=== PATIENT | female | born 1960 | race Caucasian/White ===

== ENCOUNTER 2017-09-29 12:52 | Inpatient (IN) | payer OTHER, MEDICAID ==
[~2017-09-29] VITALS: Ht 162.6 cm; Wt 56.7 kg
[2017-09-29] MEDS ORDERED: IV NORMAL SALINE 1000 ML BAG IV ONE (13:00)
--- NOTE | 2017-09-29 13:03 | NUR ---
Sending facility info per transport EMT: [id number] [place]. [id number] Contact: Ave
--- NOTE | 2017-09-29 13:05 | NUR ---
PATEINT IS AWAKE, ALERT, ORIENTED X4. ALREADY HAS A CATHETER IN PLACE.
[2017-09-29] MEDS ORDERED: DILT-32 PO (13:16)
[2017-09-29] MEDS ORDERED: BACL20TA PO (13:16)
[2017-09-29] MEDS ORDERED: TERI14TA PO (13:16)
[2017-09-29] MEDS ORDERED: ALPR0.255 PO ×2 (13:16→13:17)
[2017-09-29] MEDS ORDERED: PARO20TA7 PO (13:16)
[2017-09-29] MEDS ORDERED: CLINDAMYCIN (13:16)
[2017-09-29] MEDS ORDERED: PANT40TA4 PO (13:16)
[2017-09-29] MEDS ORDERED: CARV40CP PO (13:16)
[2017-09-29] MEDS ORDERED: TERA5CAP4 PO (13:16)
[2017-09-29] MEDS ORDERED: GABA-534 PO (13:16)
[2017-09-29] MEDS ORDERED: MIRA50TA PO (13:16)
[2017-09-29] MEDS ORDERED: PROM25TA15 PO (13:16)
[2017-09-29] MEDS ORDERED: FLUC150T PO (13:17)
[2017-09-29] MEDS ORDERED: TRAM50TA2 PO (13:17)
[2017-09-29] MEDS ORDERED: LEVO750T46 PO (13:17)
[2017-09-29 13:46] LABS: BASOPHILS % (AUTO) 0.8 % (0.0-2.0); CREATININE 0.6 mg/dL (0.6-1.3); EOSINOPHILS # (AUTO) 0.2 K/uL (0.0-0.7); EOSINOPHILS % (AUTO) 3.7 % (0.0-7.0); HEMATOCRIT 42.4 % (31.2-41.9); HEMOGLOBIN 14.1 g/dL (10.9-14.3); LYMPHOCYTES # (AUTO) 1.5 K/uL (20.0-40.0); LYMPHOCYTES % (AUTO) 31.9 % (20.5-51.5); MEAN CORPUSCULAR HEMOGLOBIN 31.8 uug (24.7-32.8); MEAN CORPUSCULAR HGB CONC 33 g/dL (32.3-35.6); MEAN CORPUSCULAR VOLUME 95.8 fL (75.5-95.3); MONOCYTES # (AUTO) 0.4 K/uL (2.0-10.0); NEUTROPHILS # (AUTO) 2.6 K/uL (1.8-8.9); NEUTROPHILS % (AUTO) 55.6 % (38.5-71.5); PLATELET COUNT (AUTO) 191 K/uL (179-408); POTASSIUM 3.7 mmol/L (3.5-5.1); RED BLOOD CELL COUNT(AUTO) 4.43 MIL/uL (3.63-4.92); WHITE BLOOD COUNT (AUTO) 4.7 K/uL (3.8-11.8)
[2017-09-29 14:02] LABS: BILIRUBIN,DIRECT 0.1 mg/dL (0.0-0.2); BILIRUBIN,TOTAL 0.2 mg/dL (0.2-1.0); TOTAL PROTEIN, SERUM 7.5 g/dL (6.4-8.2)
--- NOTE | 2017-09-29 14:20 | NUR ---
AWAITING TEST RESULTS. PT IS AWAKE AND ALERT.
[2017-09-29] MEDS ORDERED: PROBIOTICS (15:18)
--- NOTE | 2017-09-29 15:24 | NUR ---
PATIENT AWARE OF PENDING ADMISSION. REPORT GIVEN TO CARO CLANCY.
[2017-09-29 15:36] LABS: *BILIRUBIN,URIN NEGATIVE (NEGATIVE); *BLOOD, URINE Trace-intact (NEGATIVE); *COLOR,URINE LIGHT YELLOW (YELLOW); *KETONES,URINE NEGATIVE (NEGATIVE); *PROTEIN,URINE NEGATIVE (NEGATIVE); *UROBILINOGEN,URINE 0.2 E.U./dl (NORMAL); LEUKOCYTE ESTERASE ,URINE 1+ (NEGATIVE); NITRITE, URINE NEGATIVE (NEGATIVE); UGLUCOSE NEGATIVE (NEGATIVE)
[2017-09-29 15:40] LABS: *CLARITY,URINE HAZY (CLEAR)
[2017-09-29 15:48] LABS: CALCIUM OXALATE CRYSTALS,UR FEW /HPF (NONE SEEN); YEAST,URINE MODERATE /HPF (NONE SEEN)
--- NOTE | 2017-09-29 16:15 | NUR ---
Nursing notes: Received pt from ed, upon admission awake, alert, oriented x3 verbally responsive, suprapubic cath in place draining clear yellow urine, denies any pain at this time, pt will be seen by MD for admission orders.
[2017-09-29 17:34] VITALS: BP 105/73
--- NOTE | 2017-09-29 18:30 | NUR ---
Dr Cortez has not seen pt yet, pt and family asking for food was explained to them that we do not have orders, we text to [facility]D but has not reply yet.
[2017-09-29 19:00] VITALS: BP 108/68
[2017-09-29] MEDS ORDERED: PROMETHAZINE HCL 25 MG TABLET PO PRN (19:15)
[2017-09-29] MEDS ORDERED: TRAMADOL HCL 50 MG TABLET PO PRN (19:15)
[2017-09-29] MEDS ORDERED: MORPHINE SULFATE 2 MG/1 ML DISP.SYRIN IV PRN (19:15)
[2017-09-29] MEDS ORDERED: ALPRAZOLAM 0.25 MG TABLET PO PRN (19:15)
[2017-09-29] MEDS ORDERED: ZOLPIDEM 5 MG TABLET PO PRN (19:15)
[2017-09-29] MEDS ORDERED: ONDANSETRON 4 MG/2 ML VIAL IV PRN (19:15)
[2017-09-29] MEDS ORDERED: MORPHINE SULFATE 4 MG/1 ML DISP.SYRIN IV PRN (19:30)
--- NOTE | 2017-09-29 19:30 | NUR ---
RECEIVED PATIENT IN BED ALERT ORIENTED, NO SOB NO CHEST PAIN, NO CHEST PAIN, SUPRAPUBIC CATH PATENT DRAINING WITH YELLOW COLOR URINE IN MODERATE AMOUNT, KEPT CLEAN AND DRY, CALL LIGHT WITHIN REACH.
[2017-09-29] MEDS ORDERED: GABAPENTIN 300 MG CAPSULE PO ONE (20:45)
[2017-09-29] MEDS: TERAZOSIN 5 MG CAPSULE PO SCH (21:00)
--- NOTE | 2017-09-29 21:00 | NUR ---
PATIENT PREFER TO TAKE NEUROTIN AND XANAX AT 2230, REFUSED TO TAKE HYTRIN AND COLACE AT THIS TIME, PATIENT STATED SHE TOOK THOSE MEDICATION FROM THE BOARD AND CARE AT 1700.
[2017-09-29] MEDS ORDERED: DOCUSATE SODIUM 100 MG CAPSULE PO SCH (21:30)
[2017-09-29] MEDS ORDERED: MIRALAX 17 GM POWD.PACK PO PRN (21:30)
[2017-09-29] MEDS: MEROPENEM 1 G in IV NORMAL SALINE 100 ML IV SCH (21:47)
[2017-09-29] MEDS ORDERED: GABAPENTIN 300 MG CAPSULE PO SCH (22:00)
[2017-09-29] MEDS: ALPRAZOLAM 0.25 MG TABLET PO SCH (23:04)
[2017-09-29] MEDS ORDERED: GLYCERIN ADULT RECTAL SUPP EACH RC PRN (23:15)
[2017-09-30] VITALS: BP 103/65
[2017-09-30 04:00] VITALS: BP 103/68
[2017-09-30] MEDS ORDERED: GABAPENTIN 300 MG CAPSULE PO PRN (05:15)
[2017-09-30] MEDS ORDERED: GABAPENTIN 300 MG CAPSULE ONE (06:27)
[2017-09-30 06:33] LABS: BASOPHILS % (AUTO) 0.7 % (0.0-2.0); EOSINOPHILS # (AUTO) 0.2 K/uL (0.0-0.7); EOSINOPHILS % (AUTO) 4.5 % (0.0-7.0); HEMATOCRIT 35.7 % (31.2-41.9); HEMOGLOBIN 11.9 g/dL (10.9-14.3); LYMPHOCYTES # (AUTO) 2.3 K/uL (20.0-40.0); LYMPHOCYTES % (AUTO) 41.2 % (20.5-51.5); MEAN CORPUSCULAR HEMOGLOBIN 31.7 uug (24.7-32.8); MEAN CORPUSCULAR HGB CONC 33 g/dL (32.3-35.6); MEAN CORPUSCULAR VOLUME 95.5 fL (75.5-95.3); MONOCYTES # (AUTO) 0.5 K/uL (2.0-10.0); MONOCYTES % (AUTO) 9.2 % (0.0-11.0); NEUTROPHILS # (AUTO) 2.4 K/uL (1.8-8.9); NEUTROPHILS % (AUTO) 44.4 % (38.5-71.5); PLATELET COUNT (AUTO) 191 K/uL (179-408); RED BLOOD CELL COUNT(AUTO) 3.73 MIL/uL (3.63-4.92); WHITE BLOOD COUNT (AUTO) 5.5 K/uL (3.8-11.8)
[2017-09-30 06:46] LABS: BILIRUBIN,TOTAL 0.3 mg/dL (0.2-1.0); CREATININE 0.5 mg/dL (0.6-1.3); MAGNESIUM 1.6 mg/dL (1.8-2.4); PHOSPHOROUS 2.9 mg/dL (2.5-4.9); POTASSIUM 3.3 mmol/L (3.5-5.1); TOTAL PROTEIN, SERUM 6.4 g/dL (6.4-8.2)
[2017-09-30 07:03] LABS: THYROID STIMULATING HORMONE 1.743 mIU/mL (0.358-3.740)
--- NOTE | 2017-09-30 07:15 | NUR ---
RECEIVED REPORT FROM ELECTRONICS [employer] SALES REPRESENTATIVE NURSE, PATIENT IN BED ASLEEP, NO EVIDENCE OF DISTRESS NOTED AT VISUAL ASSESSMENT, BED IN LOW POSITION, SIDE RAILS UP X2.
--- NOTE | 2017-09-30 07:27 | NUR ---
PATIENT SLEPT MOST OF THE NIGHT NO SOB NO CHEST PAIN, CONT ON PAIN ASSESSMENT, SUPRAPUBIC CATH, PATENT DRAINING WITH YELLOW COLOR URINE IN MODERATE AMOUNT, CONT TO MONITOR.
[2017-09-30] MEDS ORDERED: Medication Not On Formulary EA (Mirabegron (Myrbetriq) 50 MG) PO SCH (09:00)
[2017-09-30] MEDS ORDERED: DILTIAZEM HCL CD 120 MG CAP.SR.24H PO SCH (09:00)
[2017-09-30] MEDS: GABAPENTIN 300 MG CAPSULE PO SCH ×3 (09:00→17:37)
[2017-09-30] MEDS ORDERED: PAROXETINE HCL 20 MG TABLET PO SCH (09:00)
[2017-09-30] MEDS ORDERED: ENOXAPARIN SODIUM 40 MG/0.4 ML DISP.SYRIN SQ SCH ×2 (09:00→10:48)
[2017-09-30] MEDS ORDERED: TERIFLUNOMIDE 14 MG PO SCH (09:00)
[2017-09-30] MEDS ORDERED: BACLOFEN 20 MG TABLET PO SCH (09:00)
[2017-09-30] MEDS ORDERED: FLUCONAZOLE 150 MG PO SCH (09:00)
[2017-09-30] MEDS: BACLOFEN 20 MG TABLET PO SCH ×3 (10:37→17:37)
[2017-09-30] MEDS: FLUCONAZOLE 100 MG TABLET PO SCH (10:37)
[2017-09-30] MEDS: AUBAGIO 14 MG PO SCH (10:38)
[2017-09-30] MEDS: PANTOPRAZOLE SODIUM 40 MG TABLET.DR PO SCH (10:38)
[2017-09-30] MEDS ORDERED: POTASSIUM CHLORIDE 20 MEQ POWDER PACKET PO ONE (11:00)
[2017-09-30] MEDS: MAGNESIUM SULFATE/D5W 100 ML IV SCH ×2 (11:00→12:00)
[2017-09-30] MEDS: MEROPENEM 1 G in IV NORMAL SALINE 100 ML IV SCH ×2 (11:12→22:31)
[2017-09-30 11:16] VITALS: BP 132/83
[2017-09-30] MEDS: COREG 40 MG PO SCH (14:13)
[2017-09-30 15:39] VITALS: BP 96/66
[2017-09-30] MEDS: ACETAMINOPHEN 325 MG TABLET PO PRN (17:53)
--- NOTE | 2017-09-30 18:25 | NUR ---
PATIENT HAS BEEN COOPERATIVE WITH CARE. PATIENT HAD SEVERAL CHANGES IN HER MEDICATION TIMES AND PHARMACY ADJUSTED THEM. HOME MEDICATIONS BROUGHT IN BY CAREGIVER AT THE BOARD AND CARE AND TAKEN TO THE PHARMACY. AIR MATTRESS WAS PLACED TO ENSURE SKIN INTEGRITY. PATIENT CURRENTLY IN BED, NO EVIDENCE OF DISTRESS NOTED, BED IN LOW POSITION, SIDE RAILS UP X2.
--- NOTE | 2017-09-30 19:15 | NUR ---
RECEIVED IN BED AWAKE VERBALLY RESPONSIVE, NO COMPLAIN OF PAIN, NO SOB, LYNN CATH PATENT DRAINING IN YELLOW COLOR URINE IN MODERATE AMOUNT, PATIENT COMPLAIN OF CONSTIPATION, WILL GIVE SUPPOSITORY ORDERED. TURN AND REPOSITION, KEPT COMFORTABLE.
[2017-09-30] MEDS: BISACODYL 10 MG SUPP.RECT RC PRN (20:30)
[2017-09-30] MEDS: TERAZOSIN 5 MG CAPSULE PO SCH (21:00)
[2017-09-30] MEDS: ALPRAZOLAM 0.25 MG TABLET PO SCH (21:55)
[2017-09-30] MEDS: LACTOBACILLUS RHAMNOSUS GG 1 EACH CAPSULE PO SCH (21:55)
[2017-09-30] MEDS: PAROXETINE HCL 20 MG TABLET PO SCH (21:56)
[2017-09-30] MEDS: MYRBETRIQ 50 MG PO SCH (21:57)
[2017-09-30] MEDS: DILTIAZEM HCL CD 120 MG CAP.SR.24H PO SCH (22:07)
[2017-09-30 23:46] VITALS: BP 102/65
[2017-10-01] MEDS: ACETAMINOPHEN 325 MG TABLET PO PRN (02:42)
[2017-10-01] MEDS: BISACODYL 10 MG SUPP.RECT RC PRN (03:03)
--- NOTE | 2017-10-01 03:04 | NUR ---
PATIENT REFUSED BLADDER IRRIGATION AT THIS TIME, LYNN DRAINING WITH YELLOW COLOR URINE IN MODERATE AMOUNT. CONT TO MONITOR.
[2017-10-01 04:00] VITALS: BP 96/60
[2017-10-01] MEDS: GABAPENTIN 300 MG CAPSULE PO PRN (05:41)
--- NOTE | 2017-10-01 06:51 | NUR ---
PATIENT SLEPT MOST OF THE NIGHT, CONT PAIN MANAGEMENT, LYNN CATH PATENT DRAINING WITH YELLOW COLOR URINE IN MODERATE AMOUNT, PATIENT REFUSED TO BE TURN AND REPOSITION AT LEAST EVERY 2 TO 3 HOURS, KEPT CLEAN AND DRY, SUPPOSITORY GIVEN ORDERED WITH EFFECTIVE RESULT, CONT TO MONITOR.
[2017-10-01 07:04] LABS: BASOPHILS # (AUTO) 0.1 K/uL (0.0-8.0); BASOPHILS % (AUTO) 1.2 % (0.0-2.0); EOSINOPHILS # (AUTO) 0.2 K/uL (0.0-0.7); EOSINOPHILS % (AUTO) 4.4 % (0.0-7.0); HEMATOCRIT 37.4 % (31.2-41.9); HEMOGLOBIN 12.3 g/dL (10.9-14.3); LYMPHOCYTES # (AUTO) 2.3 K/uL (20.0-40.0); LYMPHOCYTES % (AUTO) 42.1 % (20.5-51.5); MEAN CORPUSCULAR HEMOGLOBIN 31.5 uug (24.7-32.8); MEAN CORPUSCULAR HGB CONC 33 g/dL (32.3-35.6); MEAN CORPUSCULAR VOLUME 95.6 fL (75.5-95.3); MONOCYTES # (AUTO) 0.5 K/uL (2.0-10.0); MONOCYTES % (AUTO) 8.3 % (0.0-11.0); NEUTROPHILS # (AUTO) 2.4 K/uL (1.8-8.9); PLATELET COUNT (AUTO) 179 K/uL (179-408); RED BLOOD CELL COUNT(AUTO) 3.91 MIL/uL (3.63-4.92); WHITE BLOOD COUNT (AUTO) 5.5 K/uL (3.8-11.8)
[2017-10-01 07:12] LABS: CARBON DIOXIDE 28 mmol/L (21-32); CHLORIDE 107 mmol/L (98-107); CREATININE 0.4 mg/dL (0.6-1.3); GLUCOSE 87 mg/dL (74-106); MAGNESIUM 2.1 mg/dL (1.8-2.4); PHOSPHOROUS 2.8 mg/dL (2.5-4.9); POTASSIUM 3.6 mmol/L (3.5-5.1); UREA NITROGEN, BLOOD 8 mg/dL (7-18)
--- NOTE | 2017-10-01 07:15 | NUR ---
RECEIVED REPORT FROM INTERNET SITE DESIGNER NURSE, PATIENT IN BED ASLEEP, NO EVIDENCE OF DISTRESS NOTED ON VISUAL ASSESSMENT, BED IN LOW POSITION, SIDE RAILS UP X2.
[2017-10-01] MEDS: AUBAGIO 14 MG PO SCH (09:00)
[2017-10-01] MEDS: GABAPENTIN 300 MG CAPSULE PO SCH ×3 (09:57→17:58)
[2017-10-01] MEDS: PANTOPRAZOLE SODIUM 40 MG TABLET.DR PO SCH (09:57)
[2017-10-01] MEDS: BACLOFEN 20 MG TABLET PO SCH ×3 (09:57→17:58)
[2017-10-01] MEDS: COREG 40 MG PO SCH (09:58)
[2017-10-01] MEDS: FLUCONAZOLE 100 MG TABLET PO SCH (09:58)
[2017-10-01] MEDS: LACTOBACILLUS RHAMNOSUS GG 1 EACH CAPSULE PO SCH ×2 (10:01→20:33)
[2017-10-01] MEDS: MEROPENEM 1 G in IV NORMAL SALINE 100 ML IV SCH ×2 (10:02→20:33)
[2017-10-01] MEDS: ENOXAPARIN SODIUM 40 MG/0.4 ML DISP.SYRIN SQ SCH (10:03)
[2017-10-01 11:35] VITALS: BP 102/68
[2017-10-01 15:53] VITALS: BP 100/64
[2017-10-01] MEDS ORDERED: HYDROCODONE/APAP 5-325MG TABLET PO PRN (17:15)
--- NOTE | 2017-10-01 18:12 | NUR ---
PATIENT HAS BEEN COOPERATIVE WITH CARE THROUGHOUT SHIFT. IRRIGATED PATIENT'S CATHETER WITH 30 CC STERILE WATER. NO EVIDENCE OF DISTRESS THROUGHOUT SHIFT. BED IN LOW POSITION, SIDE RAILS UP X2.
[2017-10-01 19:00] VITALS: BP 92/60
--- NOTE | 2017-10-01 19:00 | NUR ---
Received patient awake and alert during initial rounds. No distress or discomfort at this time. Safety measures and fall precautions maintained. Continue to monitor.
[2017-10-01] MEDS: DILTIAZEM HCL CD 120 MG CAP.SR.24H PO SCH ×3 (20:34→23:10)
[2017-10-01] MEDS: TERAZOSIN 5 MG CAPSULE PO SCH ×3 (20:34→23:11)
[2017-10-01] MEDS: PAROXETINE HCL 20 MG TABLET PO SCH (20:34)
[2017-10-01] MEDS: ALPRAZOLAM 0.25 MG TABLET PO SCH ×3 (20:34→23:28)
[2017-10-01] MEDS: MYRBETRIQ 50 MG PO SCH (20:41)
[2017-10-02 04:00] VITALS: BP 108/76
[2017-10-02] MEDS: GABAPENTIN 300 MG CAPSULE PO PRN (05:24)
[2017-10-02] MEDS: PANTOPRAZOLE SODIUM 40 MG TABLET.DR PO SCH (05:26)
--- NOTE | 2017-10-02 06:21 | NUR ---
Patient asleep, easily arousable to stimuli. All due medications were given for the morning. All needs attended to. Bed in low position with call light within reach.
--- NOTE | 2017-10-02 07:30 | NUR ---
RECEIVED REPORT FROM [facility] MAGISTRATE. RECEIVED CLIENT IN BED ASLEEP ON HER RIGHT SIDE WITH THE HOB AT 45 DEGREES REJI. NO APPARENT SIGNS AND SYMPTOMS OF SOB, PAIN, DISTRESS OR DISCOMFORT.
--- NOTE | 2017-10-02 09:30 | NUR ---
CLIENT IS BED SOUND ASLEEP IN BED. NO APPARENT SIGNS AND SYMPTOMS OF SOB, PAIN, DISTRESS OR DISCOMFORT.
[2017-10-02] MEDS: ENOXAPARIN SODIUM 40 MG/0.4 ML DISP.SYRIN SQ SCH (10:28)
[2017-10-02] MEDS: COREG 40 MG PO SCH (10:29)
[2017-10-02] MEDS: GABAPENTIN 300 MG CAPSULE PO SCH ×4 (10:29→21:27)
[2017-10-02] MEDS: AUBAGIO 14 MG PO SCH (10:29)
[2017-10-02] MEDS: LACTOBACILLUS RHAMNOSUS GG 1 EACH CAPSULE PO SCH ×2 (10:29→21:27)
[2017-10-02] MEDS: MEROPENEM 1 G in IV NORMAL SALINE 100 ML IV SCH ×2 (10:30→21:59)
[2017-10-02] MEDS: FLUCONAZOLE 100 MG TABLET PO SCH (10:30)
[2017-10-02] MEDS: BACLOFEN 20 MG TABLET PO SCH ×3 (10:30→17:00)
--- NOTE | 2017-10-02 10:30 | NUR ---
CLIENT STATED SHE ONLY WANTS TO TAKE TWO OUT OUT THE THREE GABAPENTIN. ONE WAS RETURNED BACK TO THE RETURN PHARMACY BOX
[2017-10-02 11:30] VITALS: BP 103/64
[2017-10-02 16:10] VITALS: BP 96/61
--- NOTE | 2017-10-02 17:28 | NUR ---
CLIENT REFUSED BACLOFEN AND GABAPENTIN 1700 HOURS, STATING THAT SHE WOULD LIKE TO TAKE THEM WITH HER NIGHTTIME MEDICATION.
--- NOTE | 2017-10-02 17:59 | NUR ---
PHARMACY AWARE OF CLIENT'S REFUSAL TO TAKE BACLOFEN AND GABAPENTIN AT 1700 HRS. NON-ADMINISTER WAS DOCUMENTED IN THE eMAR AND THE TIME FOR BOTH PREVIOUSLY MENTIONED MEDICATIONS WILL BE SWITCHED TO 2100 HRS.
[2017-10-02 19:00] VITALS: BP 88/60
--- NOTE | 2017-10-02 19:02 | NUR ---
CLIENT IN AWAKE, ALERT AND ORIENTED TIMES 4, IN BED WITH THE HOB AT 45 DEGREES ANGLE, REPOSITIONED IN BED. CLIENT STATED NO PAIN, NO SOB, NO DISCOMFORT AND NO DISTRESS. NURSING NEEDS WERE MET AND ASSISTED CLIENT WITH HER REQUESTS THROUGHOUT THE DAY.
--- NOTE | 2017-10-02 19:30 | NUR ---
PT IN ROOM ALERT AWAKE AND ORIENTED. NO S/S OF ACUTE DISTRESS AT THIS TIME. STATES SHE IS REQUESTING HER GABAPENTIN 2100 RECENTLY WAS CHANGED. NO REACTION TO CURRENT IV ABX THERAPY. CATHETER INTACT. CONTINUE TO MONITOR. USES HER PHONE TO ASSIST WITH COMMUNICATION.
[2017-10-02] MEDS: PAROXETINE HCL 20 MG TABLET PO SCH (21:28)
[2017-10-02] MEDS: MYRBETRIQ 50 MG PO SCH (21:41)
--- NOTE | 2017-10-02 22:30 | NUR ---
Pt states IV has been "burning". No s/s of infiltration noted to site. Dr Cobb aware and stated pt may stop Merrem IV atb and will start on PO abx next. Continue to monitor.
[2017-10-02] MEDS: DILTIAZEM HCL CD 120 MG CAP.SR.24H PO SCH (23:15)
[2017-10-02] MEDS: TERAZOSIN 5 MG CAPSULE PO SCH (23:15)
[2017-10-03] MEDS: ACETAMINOPHEN 325 MG TABLET PO PRN (00:18)
[2017-10-03] MEDS: ALPRAZOLAM 0.25 MG TABLET PO SCH (00:18)
[2017-10-03 04:00] VITALS: BP 113/68
--- NOTE | 2017-10-03 05:00 | NUR ---
PT IN ROOM ASLEEP IN NO ACUTE DISTRESS. REMAINS WITH NO IV D/T COMPLAIN OF "BURNING". MD AWARE. CONTINUE TO MONITOR. F/C INTACT.
[2017-10-03] MEDS: GABAPENTIN 300 MG CAPSULE PO PRN (07:01)
[2017-10-03] MEDS: PANTOPRAZOLE SODIUM 40 MG TABLET.DR PO SCH (07:03)
--- NOTE | 2017-10-03 07:10 | NUR ---
RECEIVED CLIENT IN BED AWAKE, ALERT AND ORIENTED TIMES 4. NO APPARENT SIGNS AND SYMPTOMS OF SOB, PAIN, DISTRESS OR DISCOMFORT. HOB AT 35 DEGREES ANGLE, CLIENT HAS A FIRST STEP MATTRESS. LYNN CATHETER INTACT
[2017-10-03] MEDS: AUBAGIO 14 MG PO SCH (09:00)
[2017-10-03] MEDS: ENOXAPARIN SODIUM 40 MG/0.4 ML DISP.SYRIN SQ SCH (09:57)
[2017-10-03] MEDS: LACTOBACILLUS RHAMNOSUS GG 1 EACH CAPSULE PO SCH (09:57)
[2017-10-03] MEDS: BACLOFEN 20 MG TABLET PO SCH ×3 (09:57→17:00)
[2017-10-03] MEDS: FLUCONAZOLE 100 MG TABLET PO SCH (09:58)
[2017-10-03] MEDS: GABAPENTIN 300 MG CAPSULE PO SCH ×2 (10:00→13:12)
--- NOTE | 2017-10-03 10:00 | NUR ---
CLIENT REFUSED TO TAKE HER SCHEDULED NEURONTIN. CLIENT'S OWN SUPPLY OF AUBAGIO NOT AVAILABLE, CLIENT STATING SHE IS LEAVING TODAY AND HAD NO NEED TO HAVE MORE SUPPLY BROUGHT IN. MERREM IS ON HOLD DUE TO THE CLIENT NOT HAVING AN IV ACCESS. CLIENT IS STATING SHE IS A HARD STICK AND WANTS A PROFESSIONAL TO INSERT HER IV. LABS WAS INFORMED ABOUT HER REQUEST. WAITING ON LAB TO TO INSERT IV ACCESS.
[2017-10-03] MEDS: COREG 40 MG PO SCH (10:05)
[2017-10-03] MEDS: MEROPENEM 1 G in IV NORMAL SALINE 100 ML IV SCH (11:29)
--- NOTE | 2017-10-03 11:37 | NUR ---
MERREM INFUSING LATE. DIRTOR OF NURSING WAS ABLE TO START AN IV LINE 22 G ON THE RIGHT HAND. NO COMPLICATION NOTED
[2017-10-03 11:38] VITALS: BP 111/72
[2017-10-03] MEDS ORDERED: ACET325S8 PO (12:51)
[2017-10-03] MEDS ORDERED: LEVO500T2 PO (12:51)
[2017-10-03] MEDS ORDERED: FLUCONAZOLE 100 MG TABLET PO ONE (13:04)
[2017-10-03] MEDS ORDERED: FLUC150T PO (13:06)
--- NOTE | 2017-10-03 13:17 | NUR ---
CLIENT REFUSED DIFLUCAN STATING SHE ALREADY TOOK THIS MORNING'S DOSE. COMPLIANT WITH EARLY AFTERNOON MEDICATION. SUPRAPUBIC CATHETER FLUSHED WITH STERILE WATER ACCORDING TO HOW CLIENT WANTED IT TO BE FLUSHED. SUPRAPUBIC CATHETER SITE CLEANSED WITH STERILE WATER AND A DRY GAUGE PLACED UNDERNEATH CATHETER TUBE INSERTION SITE.
--- NOTE | 2017-10-03 15:30 | NUR ---
IN CLIENT'S ROOM ASSISTING FPGA ENGINEER WITH POSITION CHANGE. ADDRESSING BROAD OF CARE CONCERNS. CASE MANAGEMENT TALKING TO HER IN REGARDS TO GETTING IN TOUCH WITH BROAD OF CARE IN ORDER TO DISCHARGE HER WITH DOCTOR'S ORDERS
[2017-10-03 15:41] VITALS: BP 105/69
--- NOTE | 2017-10-03 17:00 | NUR ---
Baclofen not given. Client has been discharged by MD orders to [facility]. VS stable B/P 129/78, HR 83, O2 st 93-94 room air. No signs and symptoms of pain, SOB, distress or discomfort. Client is being transferred by [facility] and accompanied by two electromechanical engineer. Client's belonging, home meds, and cell phone at bedside. [facility] is aware of her pending arrival.
== END 2017-10-03 17:05 | DRG 871 ==
LOC: ER 12:52 → TELE 15:48 → MED 09-30 13:15
PROVIDERS: ADMIT Internal Medicine; ATTEND Internal Medicine
DX: A41.9 Sepsis, unspecified organism (principal); G93.40 Encephalopathy, unspecified; G82.50 Quadriplegia, unspecified; E44.0 Moderate protein-calorie malnutrition; G35 Multiple sclerosis; E83.42 Hypomagnesemia; D68.59 Other primary thrombophilia; N39.0 Urinary tract infection, site not specified; J98.11 Atelectasis; N31.9 Neuromuscular dysfunction of bladder, unspecified; Z93.6 Other artificial openings of urinary tract status; K56.41 Fecal impaction; Z79.899 Other long term (current) drug therapy; Z68.21 Body mass index [BMI] 21.0-21.9, adult; I10 Essential (primary) hypertension; E87.6 Hypokalemia; R73.9 Hyperglycemia, unspecified
CPT/HCPCS: 36415; 70030-TC; 71010; 83550; 83605; 83735; 84100; 84443; 85025; 85730; 87040; 87086; 93005; A4217; A4663; J1650; J2185; J3475; J3490; J7030; J7040